=== PATIENT | female | born 2000 ===

== ENCOUNTER 2025-01-31 11:35 | Emergency (ER) | payer OTHER, SELFPAY ==
[2025-01-31 11:40] VITALS: BP 132/86; PULSE 84; O2SAT 98
[2025-01-31 11:43] VITALS: BP 135/65; PULSE 88; RESP 16; TEMP 37; O2SAT 97; BMI 27.9
--- NOTE | 2025-01-31 11:43 | ED_ITS ---
HPI - General Adult General Chief complaint: General Medical Stated complaint: spasm/cramp on hands, hands,face turned yellow Time Seen by Provider: 01/31/25 12:22 History of Present Illness ED Provider: Luther Elam MD HPI narrative: [age] female with recurrent episode she has had this before of her hands locking up after a sensation of warm tingling throughout the body while watching TV. She does acknowledge drinking alcohol daily. No prior seizure disorder. She has previously felt the similar symptoms self-limited maybe tender 20 minutes. She does not explicitly recall hypoventilation but she is not sure she felt unwell during the episode Related Data Allergies Allergy/AdvReac Type Severity Reaction Status Date / Time No Known Allergies Allergy Verified 01/31/25 11:46 [facility] Social History Social History Advance Directives: No Advance Directives Information Provided: Yes Physical Exam ED Exam Exam: EXAM: Gen: Alert, awake, well appearing, well hydrated. Head: Atraumatic Eyes: Anicteric, Normal conjunctiva. ENT: Moist mucosa, no pallor. ? Neck: Supple. Skin: ?No observable rash or bruising on exposed or examined skin Respiratory: Breathing comfortably, No distress.Clear to auscultation bilaterally, symmetric chest expansion, No wheeze, rales, ronchi. Cardiovascular: Regular rate and rhythm. No murmurs or rub. Well perfused periphery, warm extremities. No edema. ? Abdominal: No focal tenderness. Soft, no objective distension. No palpable masses or obvious organomegaly. ?No guarding, no rebound tenderness or other peritoneal findings. : No flank tenderness. Neuro: Alert. Gross movement of all extremities intact. ? Psych: Calm. Cooperative. MSK: No grossly visible deformity. Normal hands soft no edema well-perfused Vital signs: See flowsheet Vital Signs: Vital Signs - 24 hr 01/31/25 11:43 01/31/25 13:33 01/31/25 13:37 Temperature 98.6 F 98 F Pulse Rate 88 69 69 Respiratory Rate 16 16 16 Blood Pressure 135/65 117/68 117/68 Pulse Oximetry 97 97 97 Oxygen Delivery Method Room Air Room Air Room Air BMI result Body Mass Index 27.9 Course Course Course Narrative: This is a Rapid Medical Examination (RME) performed by Jonas Guajardo PA-C in triage. Full HPI, ROS, assessment and treatment plan per primary provider in the Main ED. Hx: 24 yo F, BIBA for eval of hot flash this morning, followed by cramping to hands, felt them lock up . states her hands and face turned yellow. admits to taking two shots of alcohol and smoking a blunt this morning. girlfriend told her to call 911. symptoms have resolved. states this is the second time this has happened. PE/vitals: ambulating with steady gait, talking on cellphone Plan: labs Medications Administered Discontinued Medications Generic Name Dose Route Start Last Admin Trade Name Franko PRN Reason Stop Dose Admin Magnesium Oxide 800 mg 01/31/25 12:30 01/31/25 12:49 Magnesium Oxide 400 Mg Tablet PO 01/31/25 12:31 800 mg ONCE ONE Administration Potassium Chloride 40 meq 01/31/25 12:30 01/31/25 12:49 Potassium Chloride Packet 20 Meq Packet PO 01/31/25 12:31 40 meq ONCE ONE Administration Thiamine HCl 100 mg 01/31/25 13:23 01/31/25 13:33 Thiamine Hcl 100 Mg Tablet PO 01/31/25 13:24 100 mg ONCE ONE Administration Medical Decision Making Medical Decision Making MDM Narrative: Medical Decision Making: [age] female with resolved likely carpal pedal spasm. Reassuring exam here. The patient does endorse daily alcohol could be vitamin or electrolyte deficiency. Mag slightly low, potassium slightly low. We will replete electrolytes and give thiamine in the ED. No withdrawal symptomatology at this time. The patient offered substance use resources she declined. I recommended alcohol cessation safely and strict return precautions. We discussed management in the setting of recurrent anxiety, panic or hyperventilation with carpopedal spasm she understands Preliminary Favored Differential Diagnosis: Carpopedal spasm, electrolyte derangement, thyroid disorder among additional considered etiologies Testing Interpreted Independently: ?See below for details Radiology or Lab testing Results Reviewed: ?See below for details Consults: ?See below for details Independent Historians/External Chart Reviews: ?See below for details Social Determinants of Health Impacting MDM/Planning: ?See below for details Lab Data 01/31/25 11:55 01/31/25 11:55 Labs: Lab Results 01/31/25 Range/Units 11:55 WBC 7.0 (4.8-10.8) X10*3/uL RBC 5.18 (4.20-5.50) X10*6/uL Hgb 14.6 (12.0-16.0) g/dl Hct 44.0 (37.0-47.0) % MCV 84.9 (80.0-98.0) fL MCH 28.2 (27.0-33.0) pg MCHC 33.2 (31.0-35.0) g/dl RDW 12.4 (11.0-16.0) % Plt Count 300 (160-400) X10*3/uL MPV 10.0 (9.4-12.3) fL Immature Gran % (Auto) 0.3 (0.0-0.4) % Neut % (Auto) 56.6 (45-73) % Lymph % (Auto) 36.9 (20-40) % [place] % (Auto) 4.9 (2-11) % Eos % (Auto) 0.9 (0-4) % Baso % (Auto) 0.4 (0-2) % Lymph # (Auto) 2.6 (1.2-4.9) X10*3/uL [place] # (Auto) 0.3 (0.1-1.2) X10*3/uL Eos # (Auto) 0.1 (0.0-0.4) X10*3/uL Baso # (Auto) 0.0 (0.0-0.2) X10*3/uL Abs Immat Gran (auto) 0.02 (0.00-0.03) X10*3/uL Absolute Neuts (auto) 4.0 (2.0-8.3) x10*3/uL Absolute Nucleated RBC 0.000 (0.0-0.012) X10*3/uL Nucleated RBC % (auto) 0.0 (0.0-0.2) /100WBC Sodium 143 (135-145) mmol/L Potassium 3.6 (3.3-5.1) mmol/L Chloride 108 (96-108) mmol/L Carbon Dioxide 24 (22-29) mmol/L Anion Gap 15 (12-20) BUN 8 L (9-16) mg/dL Creatinine 0.60 (0.5-1.4) mg/dL Estim Creat Clear Calc 129.5 Estimated GFR > 60 Random Glucose 124 H (60-115) mg/dL Calcium 9.4 (8.4-10.2) mg/dL Magnesium 1.7 (1.6-2.6) mg/dL Total Bilirubin 0.3 (0.0-1.0) mg/dL AST 32 H (5-31) U/L ALT 26 (0-31) U/L Alkaline Phosphatase 83 (39-117) U/L Total Protein 7.8 (6.5-8.0) g/dL Albumin 4.9 (3.5-5.0) g/dL Beta HCG, Quant < 2 mIU/mL Discharge Plan Discharge Clinical Impression: Carpopedal spasm Patient Disposition: Home, Self-Care Instructions: Carpopedal Spasm (ED) Additional Instructions: As we discussed you likely had hyperventilation episode which leads to muscle spasm that is transient. Your electrolytes were within normal range but slightly on the low end we repleted these orally. We recommend taking daily B vitamin complex which you can buy [id number] Interventions: ED Discharge Assessment Last Done: 01/31/25 13:37 Discharge Date/Time: 01/31/25 13:41 Print Language: [place]
[2025-01-31 11:59] LABS: MANUAL DIFF FLAG NO
[2025-01-31 12:01] LABS: Hematocrit 44.0 % (37.0-47.0); Hemoglobin 14.6 g/dl (12.0-16.0); Imm Gran Abs Auto 0.02 X10*3/uL (0.00-0.03); Imm Gran Pct Auto 0.3 % (0.0-0.4); Lymphocytes Absolute Auto 2.6 X10*3/uL (1.2-4.9); Mean Corpuscular HGB Conc 33.2 g/dl (31.0-35.0); Mean Corpuscular Hemoglobin 28.2 pg (27.0-33.0); Mean Corpuscular Volume 84.9 fL (80.0-98.0); NRBC Abs Auto 0.000 X10*3/uL (0.0-0.012); NRBC Pct Auto 0.0 /100WBC (0.0-0.2); Platelet Count 300 X10*3/uL (160-400); Red Blood Count 5.18 X10*6/uL (4.20-5.50); White Blood Count 7.0 X10*3/uL (4.8-10.8)
[2025-01-31 12:16] LABS: Alanine Aminotransferase 26 U/L (0-31); Albumin Level 4.9 g/dL (3.5-5.0); Alkaline Phosphatase 83 U/L (39-117); Anion Gap 15 (12-20); Aspartate Amino Transferase 32 U/L (5-31); Blood Urea Nitrogen 8 mg/dL (9-16); Calcium 9.4 mg/dL (8.4-10.2); Carbon Dioxide 24 mmol/L (22-29); Chloride 108 mmol/L (96-108); Creatinine Clr Calc Pharmacy 129.5; Estimated Glomerular Filt Rate > 60; Magnesium 1.7 mg/dL (1.6-2.6); Potassium 3.6 mmol/L (3.3-5.1); Sodium 143 mmol/L (135-145); Total Protein 7.8 g/dL (6.5-8.0)
[2025-01-31] MEDS: Potassium Chloride Packet 20 MEQ PACKET 40 MEQ PO (12:49)
[2025-01-31 13:33] VITALS: BP 117/68; PULSE 69; RESP 16; O2SAT 97
[2025-01-31 13:37] VITALS: BP 117/68; PULSE 69; RESP 16; TEMP 36.6; O2SAT 97
== END 2025-01-31 13:41 | disposition home or self-care (01) ==
PROVIDERS: Physician Assistant Medical; Emergency Provider Emergency Medicine
DX: R25.2 Cramp and spasm (principal)
CPT/HCPCS: 36415; 80053; 83735; 84702; 85025; 99283; 99284